=== PATIENT | female | born 1975 | race Caucasian/White ===

== ENCOUNTER 2022-08-08 13:28 | Emergency (ER) | payer OTHER, MEDICAID, SELFPAY ==
[2022-08-08 13:49] VITALS: BP 138/98; PULSE 99; RESP 18; TEMP 36.5; O2SAT 98
--- NOTE | 2022-08-08 14:01 | DI.RAD.S_ITS ---
PROCEDURE: XR FINGER LT MIN 2V INDICATIONS: Cut finger with hardboard grinder TECHNIQUE: AP hand, 2 views of the index finger(s) acquired. COMPARISON: None. FINDINGS: Bones: No fractures or dislocations. No suspicious bony lesions. Soft tissues: No suspicious soft tissue calcifications. IMPRESSION: No fracture identified. No radiopaque foreign body. Dictated by: Vitor Fuller M.D. on 08/08/2022 at 15:52 Approved by: Vitor Fuller M.D. on 08/08/2022 at 15:54
[2022-08-08] MEDS: TET,DIPH,PERTUSS(ACELL),VAC/PF 0.5 ML SYRINGE IM (17:25)
--- NOTE | 2022-08-08 18:58 | PC.NURSE ---
bandaid to site, finger splint long metal to finger as well.
[2022-08-08 18:59] VITALS: BP 161/100; PULSE 70; RESP 18; O2SAT 98
--- NOTE | 2022-08-08 19:28 | ED_ITS ---
HPI - Wound/Laceration <Sohail Weems PA-C - Last Filed: 08/08/22 20:13> General Chief Complaint: Wound/Laceration Stated Complaint: Left index finger lac Time Seen by Provider: 08/08/22 17:15 Source: patient Mode of arrival: Ambulatory History of Present Illness HPI narrative: 47-year-old female with past medical history COPD, depression presents to the ED status post a laceration sustained to her left index finger. 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 Bleeding was controlled with pressure. Patient endorses full range of motion. Patient denies numbness, tingling, weakness. Patient is not on blood thinners. Tetanus status unknown. Related Data Home Medications Medication Instructions Recorded Confirmed No Known Home Medications 11/27/17 05/11/22 Allergies Allergy/AdvReac Type Severity Reaction Status Date / Time bacitracin Allergy Mild Rash Verified 08/08/22 16:28 [From Neosporin ([id number])] neomycin Allergy Mild Rash Verified 08/08/22 16:28 [From Neosporin ([id number])] polymyxin B Allergy Mild Rash Verified 08/08/22 16:28 [From Neosporin ([id number])] Review of Systems <Sohail Weems PA-C - Last Filed: 08/08/22 20:13> Review of Systems ROS Unobtainable: All systems reviewed & are unremarkable except as noted in HPI and below Constitutional Constitutional: Denies chills, Denies fatigue, Denies fever(s), Denies frequent falls, Denies lethargy and Denies weakness Eyes Eyes: Denies change in vision, Denies eye discharge, Denies irritation and Denies loss of vision ENT Ears, Nose, Mouth, and Throat: Denies change in voice, Denies dizziness, Denies neck pain, Denies sore throat and Denies throat swelling Cardiovascular Cardiovascular: Denies chest pain, Denies irregular heart rhythm, Denies lightheadedness, Denies palpitations, Denies dyspnea, Denies dyspnea on exertion and Denies orthopnea Respiratory Respiratory: Denies cough, Denies dyspnea, Denies dyspnea on exertion and Denies wheezing Gastrointestinal Gastrointestinal: Denies abdominal pain, Denies change in bowel habits, Denies diarrhea, Denies nausea and Denies vomiting Genitourinary Genitourinary: Denies hematuria, Denies flank pain, Denies urinary incontinence and Denies urinary urgency Musculoskeletal Musculoskeletal: Denies back pain, Denies muscle weakness, Denies neck pain, Denies numbness and Denies tingling Integumentary/Breasts Skin/Breast: Denies pruritus, Denies erythema, Denies rash and Denies wounds Comments: Laceration to left index finger on the dorsal side Neurologic Neurologic: Denies behavioral changes, Denies confusion, Denies dizziness, Denies frequent falls, Denies loss of vision, Denies numbness, Denies tingling and Denies weakness Psychiatric Psychiatric: Denies anxiety, Denies behavioral changes, Denies confusion, Denies depression, Denies homicidal ideation and Denies suicidal ideation Endocrine Endocrine: Denies fatigue, Denies flushing and Denies palpitations Hematologic/Lymphatic Hematologic/Lymphatic: Denies easy bruising Allergic/Immunologic Allergic/Immunologic: Denies urticaria, Denies throat swelling and Denies wheezing Patient History <Sohail Weems PA-C - Last Filed: 08/08/22 20:13> Medical History Cervix abnormality COPD (chronic obstructive pulmonary disease) Hearing loss Preventative health care Surgical History Anesthesia History of ear surgery (~2013) Family History Mother ARDS (adult respiratory distress syndrome) Heart failure Brother Hearing impaired person Grandfather No problems noted. Grandmother No problems noted. Grandfather Heart attack Grandmother Heart problem Social History Smoking Status: Current every day smoker Smoking Status: Current every day smoker tobacco type: cigarettes Substance Use Type: marijuana Exam <Sohail Weems PA-C - Last Filed: 08/08/22 20:13> Narrative Exam Narrative: Const General:?cooperative, healthy appearing and comfortable HENNC Head:?normal to inspection Ears:?hearing grossly normal bilaterally Nose:?external nose normal Face and sinus:?normal facial exam and sinuses nontender Mouth:?oral mucosae normal Throat:?posterior oropharynx normal Eyes General:?appearance normal, both eyes and all related structures Neck Neck:?normal visual inspection and no lymphadenopathy noted Resp Effort & Inspection:?normal respiratory effort Auscultation:?clear to auscultation bilaterally Cardio Rate:?regular rate Rhythm:?regular rhythm Integumentary 1 cm linear laceration to dorsal aspect of left index finger. No internal structures visualized on exam. Full range of motion. Strength and sensation intact. Patient is neurovascularly intact. Bleeding is controlled with pressure. Neuro General:?patient alert, patient awake and patient oriented x3 Initial Vital Signs Initial Vital Signs: Vital Signs Temperature 97.7 F 08/08/22 13:49 Pulse Rate 99 H 08/08/22 13:49 Respiratory Rate 18 08/08/22 13:49 Blood Pressure 138/98 H 08/08/22 13:49 Pulse Oximetry 98 08/08/22 13:49 Oxygen Delivery Method 08/08/22 13:49 <Richard Hawthorne MD - Last Filed: 08/09/22 11:38> Initial Vital Signs Initial Vital Signs: Vital Signs Temperature 97.7 F 08/08/22 13:49 Pulse Rate 99 H 08/08/22 13:49 Respiratory Rate 18 08/08/22 13:49 Blood Pressure 138/98 H 08/08/22 13:49 Pulse Oximetry 98 08/08/22 13:49 Oxygen Delivery Method 08/08/22 13:49 Procedures <Sohail Weems PA-C - Last Filed: 08/08/22 20:13> Laceration Repair Laceration 1: Site: hand Side (If applicable): left Size (cm): 1 Description: linear Depth: simple, single layer Local Anesthetic: lidocaine 1% Amount of anesthesia used (mL): 1 Pre-repair: wound explored, irrigated extensively and deep structures intact Skin layer closed with: vicryl Skin layer suture size: 4-0 Number of sutures: 3 Technique: simple, interrupted Course <Sohail Weems PA-C - Last Filed: 08/08/22 20:13> Orders Ordered: Discontinued Medications Diphtheria/Tetanus/Acell Pertussis (Tet,Diph,Pertuss(Acell),Vac/Pf 0.5 Ml Syringe) 0.5 ml IM .ONCE ONE Stop: 08/08/22 14:09 Last Admin: 08/08/22 17:25 Dose: 0.5 ml Documented By: [facility] Vital Signs Vital signs: Vital Signs - 8 hr 08/08/22 13:49 08/08/22 18:59 Temperature 97.7 F Pulse Rate 99 H 70 Respiratory Rate 18 18 Blood Pressure 138/98 H 161/100 H Pulse Oximetry 98 98 Oxygen Delivery Method Room Air Room Air <Richard Hawthorne MD - Last Filed: 08/09/22 11:38> Orders Ordered: Discontinued Medications Diphtheria/Tetanus/Acell Pertussis (Tet,Diph,Pertuss(Acell),Vac/Pf 0.5 Ml Syringe) 0.5 ml IM .ONCE ONE Stop: 08/08/22 14:09 Last Admin: 08/08/22 17:25 Dose: 0.5 ml Documented By: [facility] Vital Signs Vital signs: Vital Signs - 8 hr 08/08/22 13:49 08/08/22 18:59 Temperature 97.7 F Pulse Rate 99 H 70 Respiratory Rate 18 18 Blood Pressure 138/98 H 161/100 H Pulse Oximetry 98 98 Oxygen Delivery Method Room Air Room Air MDM - Wound/Laceration <Sohail Weems PA-C - Last Filed: 08/08/22 20:13> MDM Narrative Medical decision making narrative: 47-year-old female with past medical history COPD, depression presents to the ED status post a laceration sustained to her left index finger. Patient has full range of motion. Strength and sensation is intact. Physical exam is reassuring. No deeper structures visualized on exam. X-ray was obtained to to rule out fracture/dislocation. X-ray negative for acute findings. Laceration was repaired with 3 sutures. Tetanus was updated. Patient was counseled on signs of infection, wound care. ED return precautions discussed with patient patient verbalized understanding. <Richard Hawthorne MD - Last Filed: 08/09/22 11:38> Medical Records Medical records narrative: I was immediately available in the department for consultation. Documentation has been reviewed. I agree with assessment and plan. Discharge Plan Departure Patient Disposition: Home Clinical Impression: Laceration Instructions: DI for Laceration Repair Activity Restrictions/Additional Instructions: You were evaluated in the ED today for a finger injury. Your injury was repaired with 3 sutures. Your tetanus was updated today. The sutures will need to be removed in 10 days. You may return to the ED or go to your PCP or a walk- in clinic for suture removal. Please watch for signs of infections including worsening pain, redness, warmth, swelling, discharge. Please return to the ED if you note any signs of infection. Prescriptions: No Action No Known Home Medications Referrals: Kulwinder Singh DO [Primary Care Provider] - Stand Alone Forms: Patient Portal/API
== END 2022-08-08 18:59 | disposition home or self-care (01) ==
PROVIDERS: Emergency Provider Student in an Organized Health Care Education/Training Program; PCP Family Medicine
DX: S61.211A Laceration without foreign body of left index finger without damage to nail, initial encounter (principal); W26.9XXA Contact with unspecified sharp object(s), initial encounter; Z23 Encounter for immunization
CPT/HCPCS: 12001; 73140; 90471; 99283; 90715

== ENCOUNTER → 2022-08-14 18:07 | Outpatient (CLI) | payer OTHER, MEDICAID, SELFPAY | PROVIDERS: PCP Family Medicine; Visit Provider Physician Assistant | DX: T81.49XA Infection following a procedure, other surgical site, initial encounter (principal) | CPT/HCPCS: 87070; 87075; 87205 ==

== ENCOUNTER → 2023-01-21 16:52 | Outpatient (CLI) | payer OTHER, MEDICAID, SELFPAY ==
--- NOTE | 2023-01-21 16:53 | DI.MRI.S_ITS ---
PROCEDURE: MR HAND LT WO CON INDICATIONS: injury to finger on left hand (left IF PIP), edema TECHNIQUE: Noncontrast coronal T1 spin echo and T2 fast spin echo with fat saturation, axial proton density fast spin echo and T2 fast spin echo with fat saturation, sagittal T1 spin echo and STIR through the hand and fingers. COMPARISON: [facility], CR, XR FINGER(S) LEFT, 08/14/2022, 21:00. [facility], CR, XR FINGER LT MIN 2V, 08/08/2022, 15:16. FINDINGS: Image quality: Excellent. Bones: Osseous edema is seen within the 2nd proximal phalangeal head and 2nd middle phalangeal base. There appears to be mild erosion of the 2nd proximal phalangeal head in the dorsal base of the middle phalanx. Small 2nd PIP joint effusion. Degenerative subchondral cystic changes are seen surrounding the 1st metacarpophalangeal joint. Additional mild to moderate scattered degenerative changes are seen in the wrist. Osseous structures otherwise demonstrate normal signal intensity. Soft tissues: Small focus of magnetic susceptibility artifact is seen at the dorsal aspect of the index finger at the level of the PIP joint, likely related to prior surgery. The 2nd extensor tendon appears attenuated with intermediate signal intensity near the insertion of the central slip onto the 2nd middle phalangeal base. The distal insertion onto the 2nd distal phalangeal base is intact. Sagittal bands appear to be intact without tendon subluxation. The remaining visualized flexor and extensor tendons are intact. Visualized muscles demonstrate normal bulk and internal signal. No intramuscular masses identified. No ganglion cysts. IMPRESSION: 1. Mild osseous edema is seen in the 2nd proximal phalangeal head and middle phalangeal base surrounding the 2nd proximal interphalangeal joint. There is mild osseous irregularity dorsally that could be related to prior surgery versus osseous erosions from osteomyelitis/septic arthritis. Small joint effusion. Correlation with repeat radiographs would also be helpful to evaluate the bony cortex and compare with prior radiographs. 2. Suspected chronic partial tearing of the central tendon slip of the 2nd extensor tendon at its insertion onto the middle phalangeal base. Approved by: Bladimir Andino M.D. on 01/22/2023 at 9:51
== END ==
PROVIDERS: PCP Family Medicine; Referring Provider Family Medicine; Visit Provider Family Medicine
DX: S69.92XA Unspecified injury of left wrist, hand and finger(s), initial encounter (principal); R22.32 Localized swelling, mass and lump, left upper limb; M79.642 Pain in left hand; X58.XXXA Exposure to other specified factors, initial encounter
CPT/HCPCS: 73218

== ENCOUNTER → 2023-05-03 12:56 | Outpatient (CLI) | payer OTHER, MEDICAID, SELFPAY ==
[2023-05-03 14:37] LABS: Alanine Aminotransferase 30 IU/L (<35); Albumin 3.8 g/dL (3.5-5.0); Albumin Globulin Ratio 1.2 (1.0-2.8); Alkaline Phosphatase 59 U/L (38-126); Aspartate Aminotransferase 28 IU/L (14-36); BUN Creatinine Ratio 17.5 (6-22); Bilirubin Total 0.4 mg/dL (0.2-1.3); Blood Urea Nitrogen 14 mg/dL (7-17); Calcium 9.5 mg/dL (8.4-10.2); Carbon Dioxide 24 mmol/L (22-32); Chloride 106 mmol/L (98-107); Estimated Glomerular Filt Rate > 60 mL/min (>60); Globulin 3.1 g/dL (1.7-4.1); Glucose 90 mg/dL (70-100); HEMOLYSIS < 15 (0-50); Potassium 3.8 mmol/L (3.4-5.1); Sodium 137 mmol/L (137-145); Total Protein 6.9 g/dL (6.3-8.2)
[2023-05-04 15:10] LABS: HBsAg Screen Negative (Negative); Hepatitis A Antibody IgM Negative (Negative); Hepatitis B Core Antibody IgM Negative (Negative); Hepatitis C Antibody Non Reactive (Non Reactive)
[2023-05-06 19:54] LABS: HIV 1 & 2 Ab/Ag 4th Gen Combo NEGATIVE (NEGATIVE)
== END ==
PROVIDERS: PCP Family Medicine; Referring Provider Internal Medicine Infectious Disease; Visit Provider Internal Medicine Infectious Disease
DX: R74.8 Abnormal levels of other serum enzymes (principal)
CPT/HCPCS: 36415; 80053; 80074; 87389

== ENCOUNTER → 2024-07-30 13:15 | Outpatient (CLI) | payer OTHER, SELFPAY ==
--- NOTE | 2024-07-30 13:19 | DI.RAD.S_ITS ---
PROCEDURE: XR FINGER LT MIN 2V INDICATIONS: FINGER PAIN TECHNIQUE: AP hand, 2 views of the 2nd left finger acquired. COMPARISON: [facility], CR, XR FINGER LT MIN 2V, 08/08/2022, 15:16. FINDINGS: Bones: There are no osseous abnormalities Joints: Severe monoarticular arthritis in the 2nd PIP consists of joint space obliteration with a pencil in cup appearance reminiscent of psoriatic arthritis. Infectious arthritis also possible. The remaining joints are unremarkable. Soft tissues: Diffuse 2nd digit soft tissue swelling is compatible with sausage digit. 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 Associated sausage digit noted. The possibility of septic arthritis is less likely Dictated by: Last Del Rosario M.D. on 07/31/2024 at 12:25 Approved by: Last Del Rosario M.D. on 07/31/2024 at 12:29
== END ==
PROVIDERS: PCP Family Medicine; Referring Provider Orthopaedic Surgery; Visit Provider Orthopaedic Surgery
DX: M19.042 Primary osteoarthritis, left hand (principal); M25.642 Stiffness of left hand, not elsewhere classified; M79.89 Other specified soft tissue disorders
CPT/HCPCS: 73140

== ENCOUNTER → 2024-07-30 16:53 | Outpatient (CLI) | payer OTHER, SELFPAY ==
[2024-07-30 18:17] LABS: Add Manual Diff / Slide Review NO; Basophils Absolute Auto 0 /uL (0-100); Basophils Percent Auto 0.2 % (0-2); Eosinophils Absolute Auto 100 /uL (0-450); Eosinophils Percent Auto 1.1 % (2-4); Hemoglobin 13.6 g/dL (12.0-16.0); Lymphocytes Absolute Auto 1900 /uL (1100-4500); Lymphocytes Percent Auto 20.4 % (25-40); Mean Corpuscular Volume 88.2 fL (80-100); Monocytes Absolute Auto 500 /uL (0-900); Neutrophils Absolute Auto 6800 /uL (1500-7000); Neutrophils Percent Auto 73.3 % (50-75); Platelet Count 398 X10^3/uL (150-400); Red Blood Cell Count 4.53 X10^6/uL (4.0-5.2); Red Cell Distribution Width 14.6 % (11.6-14.8); White Blood Cell Count 9.2 X10^3/uL (4.5-11.0)
[2024-07-30 18:37] LABS: C-Reactive Protein Quant 1.6 mg/dL (<1.0)
[2024-07-30 19:14] LABS: Erythrocyte Sedimentation Rate 27 MM/HR (0-20)
== END ==
LOC: LAB 16:55
PROVIDERS: PCP Family Medicine; Referring Provider Orthopaedic Surgery; Visit Provider Orthopaedic Surgery
DX: M25.642 Stiffness of left hand, not elsewhere classified (principal); M79.89 Other specified soft tissue disorders; M19.042 Primary osteoarthritis, left hand
CPT/HCPCS: 36415; 73140; 85025; 85651; 86140